=== PATIENT | female | born 1995 | race Caucasian/White ===

== ENCOUNTER 2017-11-27 18:03 | Emergency (ER) | payer OTHER ==
[~2017-11-27] VITALS: Ht 167.6 cm; Wt 71.7 kg
[~2017-11-27 18:03] MED LIST: BACTRIM DS 8001 TA1 PO; IRON324 MG; MIRENA52 MG IU; MOTRIN 800 MG E4 TAB PO; PEPCID20 MG PO; PREDNISONE10 MG PO; PRENATAL1 TA1 PO; ULTRAM 50 MG ED2 TAB PO
[2017-11-27] MEDS ORDERED: KETOROLAC10 MG PO (20:00)
[2017-11-27] MEDS ORDERED: CYCLOBENZAPRINE5 M3 PO (20:00)
== END 2017-11-27 20:07 | disposition home or self-care (01) ==
LOC: ED 18:03
DX: S29.011A Strain of muscle and tendon of front wall of thorax, initial encounter (principal); F17.200 Nicotine dependence, unspecified, uncomplicated; X50.1XXA Overexertion from prolonged static or awkward postures, initial encounter; Y93.89 Activity, other specified; Y92.89 Other specified places as the place of occurrence of the external cause; Y99.9 Unspecified external cause status

== ENCOUNTER 2017-12-11 09:32 | Emergency (ER) | payer OTHER ==
[~2017-12-11] VITALS: Ht 167.6 cm; Wt 68.9 kg
[~2017-12-11 09:32] MED LIST changes: +CYCLOBENZAPRINE5 M3 PO; +KETOROLAC10 MG PO
[2017-12-11] MEDS ORDERED: DIFLUCAN150 MG PO (11:31)
[2017-12-11] MEDS ORDERED: AMOXICILLIN500 M2 PO (11:31)
== END 2017-12-11 12:01 | disposition home or self-care (01) ==
LOC: ED 09:32
DX: J40 Bronchitis, not specified as acute or chronic (principal); R19.7 Diarrhea, unspecified; F17.200 Nicotine dependence, unspecified, uncomplicated

== ENCOUNTER 2020-01-04 15:09 | Emergency (ER) | payer MEDICAID ==
[~2020-01-04] VITALS: Ht 167.6 cm; Wt 72.1 kg
[~2020-01-04 15:09] MED LIST changes: +AMOXICILLIN500 M2 PO; +DIFLUCAN150 MG PO
[2020-01-04] MEDS ORDERED: AMOXICILLIN500 M2 PO (16:10)
== END 2020-01-04 16:28 | disposition home or self-care (01) ==
LOC: ED 15:09
DX: J02.0 Streptococcal pharyngitis (principal); R59.0 Localized enlarged lymph nodes; F17.200 Nicotine dependence, unspecified, uncomplicated